=== PATIENT | female | born 1945 | race Hispanic/Latino ===

== ENCOUNTER → 2017-04-22 | Emergency (ER) | payer MEDICARE ==
[~2017-04-22] VITALS: Ht 162.6 cm; Wt 70.3 kg
[2017-04-22 21:01] VITALS: BP 121/80
== END ==
LOC: FSED 18:39
DX: S00.83XA Contusion of other part of head, initial encounter (principal); S61.412A Laceration without foreign body of left hand, initial encounter; S80.212A Abrasion, left knee, initial encounter; S80.211A Abrasion, right knee, initial encounter; W01.0XXA Fall on same level from slipping, tripping and stumbling without subsequent striking against object, initial encounter; Y93.01 Activity, walking, marching and hiking; I10 Essential (primary) hypertension
CPT/HCPCS: 70460; 99283